=== PATIENT | female | born 1935 | race Two or more races ===

== ENCOUNTER 2020-01-02 08:32 | Inpatient (IN) | payer MEDICARE, BC ==
[~2020-01-02] VITALS: Ht 175.3 cm; Wt 66.7 kg
--- NOTE | 2020-01-02 08:35 | NUR ---
Pt [email or web address], from board and care, altered than usual, noted this morning BS 208, hypotension 88/49 on scene, pt is [id number], noted respiratory distress, hooked to body shop floorperson and o2 via non rebreather mask, kept rested and comfortable, will continue to monitor.
--- NOTE | 2020-01-02 08:40 | NUR ---
Seen and examined by .
--- NOTE | 2020-01-02 08:45 | NUR ---
Iv line established blood drawn and sent to lab.
--- NOTE | 2020-01-02 08:50 | NUR ---
andres cath inserted, urine specimen collected and sent to lab.
[2020-01-02 08:52] LABS: BASOPHILS % (AUTO) 0.2 % (0.0-2.0); HEMATOCRIT 31 % (33-45); HEMOGLOBIN 9.8 g/dL (11.5-14.8); LYMPHOCYTES # (AUTO) 0.5 /CMM (0.8-4.8); LYMPHOCYTES % (AUTO) 1.9 % (20.0-44.0); MEAN CORPUSCULAR HGB CONC 31 g/dl (31.0-36.0); MEAN CORPUSCULAR VOLUME 101 fL (82-100); MONOCYTES # (AUTO) 0.4 /CMM (0.1-1.30); MONOCYTES % (AUTO) 1.7 % (2.0-12.0); NEUTROPHILS # (AUTO) 25.1 /CMM (1.8-8.9); NEUTROPHILS % (AUTO) 96.2 % (43.0-81.0); PLATELET COUNT (AUTO) 311 /CMM (150-450); RED BLOOD CELL COUNT(AUTO) 3.11 MIL/uL (4.0-5.2)
[2020-01-02] MEDS ORDERED: IV NS 0.9% 1,000 ML BAG IV ONE (09:00)
[2020-01-02] MEDS ORDERED: VANCOMYCIN 1 GM in IV D5W 250 ML IV ONE (09:00)
[2020-01-02] MEDS ORDERED: CEFEPIME 1 GM in IV D5W 50 ML IV ONE (09:00)
[2020-01-02 09:02] LABS: CALCIUM, SERUM 10.2 mg/dL (8.5-10.1); CARBON DIOXIDE 25 mmol/L (21-32); CHLORIDE 108 mmol/L (98-107); CREATININE 2.9 mg/dL (0.6-1.3); GLUCOSE 181 mg/dL (74-106); POTASSIUM 3.3 mmol/L (3.5-5.1); SODIUM SERUM 146 mmol/L (136-145); UREA NITROGEN, BLOOD 32 mg/dL (7-18)
[2020-01-02 09:04] LABS: APPEARANCE,URINE Cloudy (CLEAR); BILIRUBIN,URINE Negative (NEGATIVE); BLOOD, URINE Small Ery/uL (NEGATIVE); COLOR,URINE Yellow (YELLOW); KETONES,URINE Negative (NEGATIVE); LEUKOCYTE ESTERASE ,URINE Large (NEGATIVE); NITRITE, URINE Positive (NEGATIVE); PROTEIN,URINE 100 mg/dl (NEGATIVE); UGLUCOSE Negative (NEGATIVE); UROBILINOGEN,URINE 0.2 EU/dL (0.2)
--- NOTE | 2020-01-02 09:05 | NUR ---
film technician at bedside for xray.
[2020-01-02 09:11] LABS: BACTERIA,URINE Many /HPF (None Seen); SQUAMOUS EPITHELIAL CELL,UR Few /HPF (None Seen); WBC,URINE TOO NUMEROUS TO COUN /HPF (0-3)
[2020-01-02 09:14] LABS: ALANINE AMINOTRANSFERASE 19 U/L (12-78); ALBUMIN 2.6 g/dL (3.4-5.0); ALKALINE PHOSPHATASE 85 U/L (46-116); ASPARTATE AMINOTRANSFERASE 34 U/L (15-37); B-TYPE NATRIURETIC PEPTIDE 1075 PG/ML (0-125); BILIRUBIN,DIRECT 0.1 mg/dL (0.0-0.2); BILIRUBIN,TOTAL 0.4 mg/dL (0.2-1.0)
--- NOTE | 2020-01-02 09:16 | NUR ---
Spoked to pt's daughter yaritza for confirmation of advance directive as per daughter pt is DNR/DNI.
--- NOTE | 2020-01-02 09:19 | NUR ---
Spoked to pt's daughter Radha for verification of advance directive as per daughter pt is DNR/DNI.
[2020-01-02] MEDS ORDERED: SITA25TA PO (09:22)
[2020-01-02] MEDS ORDERED: BRIN10DR EACHEYE (09:22)
[2020-01-02] MEDS ORDERED: ASPI-1152 PO (09:22)
[2020-01-02] MEDS ORDERED: DIVA125C2 PO (09:22)
[2020-01-02] MEDS ORDERED: VENL75TA4 PO (09:22)
[2020-01-02] MEDS ORDERED: NYST500P2 TD (09:22)
[2020-01-02] MEDS ORDERED: HYDR28.32 TP (09:22)
[2020-01-02] MEDS ORDERED: ACET-868 PO (09:22)
[2020-01-02] MEDS ORDERED: CANA100T PO (09:22)
[2020-01-02] MEDS ORDERED: QUET25TA PO (09:22)
[2020-01-02] MEDS ORDERED: FOLI0.4T2 PO (09:22)
[2020-01-02] MEDS ORDERED: FERR325T23 PO (09:22)
[2020-01-02] MEDS ORDERED: ATOR10TA PO (09:22)
[2020-01-02] MEDS ORDERED: CARV6.252 PO (09:22)
[2020-01-02] MEDS ORDERED: VITA1TAB56 PO (09:22)
[2020-01-02] MEDS ORDERED: BRIM5DRO2 EACHEYE (09:22)
--- NOTE | 2020-01-02 09:51 | NUR ---
EPIC PAGED AWAITING CALL BACK.
--- NOTE | 2020-01-02 10:03 | NUR ---
DUSTIN MARTINEZ AT BEDSIDE FOR EVAL.
[2020-01-02] MEDS ORDERED: INSULIN REGULAR, HUMAN 100 UNIT/ML 3 ML VIAL SQ PRN (10:30)
[2020-01-02] MEDS ORDERED: NOREPINEPHRINE 8 MG in IV D5W 500 ML IV PRN ×2 (10:30→11:30)
[2020-01-02] MEDS ORDERED: ACETAMINOPHEN 325 MG TABLET PO PRN (10:30)
[2020-01-02] MEDS ORDERED: HYDROCORTISONE 1% CREAM 28.35 GM TUBE TP PRN (10:30)
[2020-01-02] MEDS ORDERED: ONDANSETRON HCL/PF 4 MG/2 ML VIAL IVP PRN (10:30)
[2020-01-02] MEDS ORDERED: IV NS 0.9% 1,000 ML IV SCH (10:30)
[2020-01-02] MEDS ORDERED: DEXTROSE 50%-WATER 50 ML DISP.SYRIN IV PRN (10:30)
[2020-01-02] MEDS ORDERED: ACETAMINOPHEN 650 MG/SUPP.RECT RC PRN (10:30)
--- NOTE | 2020-01-02 11:00 | NUR ---
LEVOPHED 8MG CONCENTRATION STARTED AT 10MCG TITRATE TO EFFECT.
[2020-01-02 11:05] LABS: ALANINE AMINOTRANSFERASE 17 U/L (12-78); ALBUMIN 2.4 g/dL (3.4-5.0); ALKALINE PHOSPHATASE 83 U/L (46-116); ASPARTATE AMINOTRANSFERASE 40 U/L (15-37); BILIRUBIN,DIRECT 0.1 mg/dL (0.0-0.2); BILIRUBIN,TOTAL 0.3 mg/dL (0.2-1.0); CALCIUM, SERUM 9.3 mg/dL (8.5-10.1); CARBON DIOXIDE 21 mmol/L (21-32); CHLORIDE 111 mmol/L (98-107); CREATININE 2.7 mg/dL (0.6-1.3); GLUCOSE 186 mg/dL (74-106); POTASSIUM 3.6 mmol/L (3.5-5.1); SODIUM SERUM 145 mmol/L (136-145); TOTAL PROTEIN, SERUM 5.8 g/dL (6.4-8.2); UREA NITROGEN, BLOOD 31 mg/dL (7-18)
[2020-01-02 11:45] LABS: ABG BASE EXCESS -8.1 mmol/L; ABG OXYGEN SATURATION 96.2 % (92.0-98.5); ABG PCO2 35.4 mmHg (35.0-45.0); ABG PH 7.309 (7.350-7.450); AaDO2 589.6 mmHg; COHb 0.3 % (0.5-1.5); MetHb 0.6 % (0.0-1.5); O2Hb 95.3 % (94.0-97.0); SITE, ABG Left Radial; VENT MODE, BG NRB 100%
[2020-01-02] MEDS ORDERED: BLOOD SUGAR DIAGNOSTIC 1 EACH STRIP IN SCH (12:00)
[2020-01-02] MEDS ORDERED: MORPHINE SULFATE PF DRIP 250 MG in IV D5W 240 ML IV PRN (12:30)
[2020-01-02] MEDS ORDERED: GLYCOPYRROLATE 0.2 MG/ML VIAL IV PRN (12:30)
[2020-01-02] MEDS ORDERED: LORAZEPAM INJ 2 MG/ML VIAL IV PRN (12:30)
[2020-01-02] MEDS ORDERED: SCOPOLAMINE HBR 1 EA PATCH.TD72 TD SCH (12:30)
[2020-01-02] MEDS ORDERED: METRONIDAZOLE 500MG/ NS 100ML 500 MG in PREMIX 1 EA IV SCH (13:00)
--- NOTE | 2020-01-02 13:00 | NUR ---
INOED DC PER ERMA.
--- NOTE | 2020-01-02 13:11 | NUR ---
304-1 [facility] / [facility]
--- NOTE | 2020-01-02 13:20 | NUR ---
REPORT GIVEN TO SHARON HERMOSILLO FOR LUCILA.
[2020-01-02 13:30] VITALS: BP 107/51
--- NOTE | 2020-01-02 13:50 | NUR ---
RN ADMITTING NOTES ADMITTED A 84 YEARS OLD, F, TO UNIT VIA GURNEY ACCOMPANIED BY HOSPITAL STAFF AND FAMILY. OBTUNDED, COMFORT MEASURES ONLY, CODE STATUS ORDERED. ORIENTED TO UNIT, ROOM, AND STAFF. ON NON-REBREATHER MASK 10LPM. FAMILY REFUSED SKIN ASSESSMENT. IV ACCESS ON RAC#18 AND LAC#18, PATENT AND INTACT. SAFETY MEASURES IN PLACE, BED PLACED IN LOWEST LOCKED POSITION WITH SIDE RAILS UP X2. CALL LIGHT PLACED WITHIN EASY REACH, WILL CONTINUE TO MONITOR.
[2020-01-02] MEDS ORDERED: LEVOFLOXACIN 500 MG /D5W 100ML 500 MG in PREMIX 1 EA IV ONE (14:00)
--- NOTE | 2020-01-02 14:00 | NUR ---
RN NOTES FAMILY REFUSED SCOPOLAMINE PATCH AND MORPHINE DRIP. MD MADE AWARE. WILL CONTINUE TO MONITOR.
[2020-01-02] MEDS ORDERED: MORPHINE SULFATE INJ 2 MG/ML DISP.SYRIN IM/IV PRN (15:00)
--- NOTE | 2020-01-02 16:30 | NUR ---
RN NOTES PATIENT AT 1605, VERIFIED WITH ANOTHER RN ON UNIT, NO PULSE OR HEART RHYTHM NOTED, NO BREATH SOUNDS AUSCULTATED. FAMILY AT BEDSIDE. CHARGE NURSE MADE AWARE, NURSING BUSINESS RISK ANALYST MADE AWARE, MD MADE AWARE. CALLED [facility]([phone]). POST MORTEM CARE DONE. WAITING FOR MORTUARY FOR DENTAL INTERN.
[2020-01-02] MEDS ORDERED: TIMOLOL 0.5% SOLN OPHTH 5 ML BOTTLE EACHEYE SCH (17:00)
[2020-01-02] MEDS ORDERED: BRIMONIDINE TARTRATE OPHT SOLN 5 ML BOTTLE EACHEYE SCH (17:00)
[2020-01-02] MEDS ORDERED: DORZOLAMIDE OPTH 2% 10 ML BOTTLE EACHEYE SCH (17:00)
[2020-01-02] MEDS ORDERED: DIVALPROEX SODIUM 125 MG CAP.SPRINK PO SCH (17:00)
--- NOTE | 2020-01-02 18:35 | NUR ---
RN NOTES PATIENT WAS PICKED UP BY [facility]([facility]), FAMILY MADE AWARE.
[2020-01-02] MEDS ORDERED: ATORVASTATIN 10 MG TABLET PO SCH (22:00)
[2020-01-03] MEDS ORDERED: Medication Not On Formulary EA (Canagliflozin (Invokana) 100 MG) PO SCH (09:00)
[2020-01-03] MEDS ORDERED: FOLIC ACID 1 MG TABLET PO SCH (09:00)
[2020-01-03] MEDS ORDERED: VITAMIN B COMP W-C 1 TAB TABLET PO SCH (09:00)
[2020-01-03] MEDS ORDERED: LINAGLIPTIN 5 MG TABLET PO SCH (09:00)
[2020-01-03] MEDS ORDERED: NYSTATIN TD SCH (09:00)
[2020-01-03] MEDS ORDERED: PANTOPRAZOLE 40 MG VIAL IV SCH (09:00)
[2020-01-03] MEDS ORDERED: ASPIRIN EC 81 MG TABLET.DR PO SCH (09:00)
[2020-01-03] MEDS ORDERED: FERROUS SULFATE (325 MG) 325 MG/TAB TABLET PO SCH (09:00)
[2020-01-04] MEDS ORDERED: LEVOFLOXACIN 250 MG /D5W 50 ML 250 MG in PREMIX 1 EA IV SCH (14:00)
== END 2020-01-02 16:05 | disposition expired | DRG 871 ==
LOC: EDBD 08:33 → ER 08:33 → ICU 11:41 → MED 13:33
PROVIDERS: ADMIT Registered Nurse; ATTEND Registered Nurse
DX: A41.9 Sepsis, unspecified organism (principal); R65.21 Severe sepsis with septic shock; J18.9 Pneumonia, unspecified organism; G92 Toxic encephalopathy; J96.21 Acute and chronic respiratory failure with hypoxia; N39.0 Urinary tract infection, site not specified; E44.0 Moderate protein-calorie malnutrition; E87.2 Acidosis; N17.9 Acute kidney failure, unspecified; Z16.12 Extended spectrum beta lactamase (ESBL) resistance; Z51.5 Encounter for palliative care; D50.9 Iron deficiency anemia, unspecified; E11.22 Type 2 diabetes mellitus with diabetic chronic kidney disease; E86.0 Dehydration; F03.90 Unspecified dementia, unspecified severity, without behavioral disturbance, psychotic disturbance, mood disturbance, and anxiety; G40.909 Epilepsy, unspecified, not intractable, without status epilepticus; I25.10 Atherosclerotic heart disease of native coronary artery without angina pectoris; N18.9 Chronic kidney disease, unspecified; Z66 Do not resuscitate; I12.9 Hypertensive chronic kidney disease with stage 1 through stage 4 chronic kidney disease, or unspecified chronic kidney disease; E88.09 Other disorders of plasma-protein metabolism, not elsewhere classified; Z68.21 Body mass index [BMI] 21.0-21.9, adult; B96.20 Unspecified Escherichia coli [E. coli] as the cause of diseases classified elsewhere
CPT/HCPCS: 36415; 36600; 71045-TC; 80048-TC; 80076-TC; 81000-TC; 82140-TC; 82803-TC; 83605-TC; 83880; 84484-TC; 85025-TC; 85730-TC; 87040-TC; 87081-TC; 87086-TC; 87186-TC; A4216; C1751; G0378; J0692; J1815; J1956; J2274; J3370; J7030; J7060